=== PATIENT | female | born 1980 | race Caucasian/White ===

== ENCOUNTER 2025-05-16 12:45 | Outpatient (REF) | payer OTHER, SELFPAY ==
--- NOTE | ~2025-05-16 | XR_ITS ---
EXAMINATION: XR CHEST CLINICAL INFORMATION: R06.09 - Other forms of dyspnea COMPARISON: None available. TECHNIQUE: 2 views of the chest were obtained. FINDINGS: No focal lung consolidation or evidence of pulmonary edema. No pneumothorax or pleural effusion. Cardiomediastinal silhouette is within normal limits. No acute bony abnormality. XR/XR chest 2V IMPRESSION: No acute cardiopulmonary process. Electronically signed by: Magno Layton MD 05/16/2025 02:23 PM [facility]
== END 2025-05-16 12:46 | disposition home or self-care (01) ==
LOC: HO.XRAY 12:45
PROVIDERS: PCP Internal Medicine; Visit Provider Internal Medicine
DX: R06.09 Other forms of dyspnea (principal); Z13.31 Encounter for screening for depression; Z13.39 Encounter for screening examination for other mental health and behavioral disorders
CPT/HCPCS: 71046; 96127

== ENCOUNTER 2025-05-16 12:45 | Outpatient (AMB) | payer OTHER, SELFPAY ==
--- NOTE | 2025-05-16 13:00 | A.OFFPC_ITS ---
Vital Signs 05/16/25 13:01 Height 5 ft 7.5 in Weight 258 lb 8 oz BMI 39.9 BP 120/76 Blood Pressure Location Lt brachial Position Sitting Respiration 16 Pulse 86 Pulse Source Pulse Oximeter Temp 97.1 F Temp Source Temporal Artery Scan Pulse Oximetry (%) 97 Oxygen Delivery Method Room Air Intake Visit Reasons: LIZA/ resched. - see comments, reestablish care Swift Tender Required: No Accompanied by: Self / Same As Patient Allergies No Known Allergies Allergy (Verified 05/16/25 13:02) Medication List - Last Reconciled 05/16/25 by Lynn Barr MD amlodipine 5 mg PO DAILY calcium carbonate 600 mg PO DAILY cholecalciferol (vitamin D3) 50 mcg PO DAILY folic acid 1 mg PO QAM hydroxychloroquine 200 mg PO BID lisinopril 10 mg PO DAILY magnesium oxide 150 mg PO .QHS methotrexate sodium 15 mg PO QWEEK omega-3 fatty acids 500 mg PO DAILY Tobacco use date assessed: 05/16/25 Dental Screening Dental Screen Date: 05/16/25 Did you have a dental visit in the last 12 months?: Yes Did you have a dental problem in the last 6 months where you did not have access to dental care?: No Was dental information given to patient?: Patient has dentist HPI HPI Comments History of Present Illness Details The patient is a 45 year old female [facility] for management of mixed connective tissue disease. Mixed Connective Tissue Disease: The patient was diagnosed with mixed connective tissue disease by a greens laborer and has seen the specialist twice. Treatment history includes a course of prednisone, which has been tapered off, and a prior trial of high-dose prednisone that caused adverse psychiatric effects. The patient is currently on hydroxychloroquine (Plaquenil) and was recently started on methotrexate 15 mg (6 tabs) weekly with folic acid, as the hydroxychloroquine alone did not improve symptoms. Despite treatment, the patient reports persistent pain, rated 5 to 7 out of 10, affecting various joints. Swelling has improved, but muscle fatigue and dyspnea on exertion, particularly when climbing stairs, persist and began around the onset of the pain. Hypertension: The greens laborer recently started the patient on lisinopril and amlodipine after a spiked blood pressure reading at the last visit, which the patient attributes to anxiety about the appointment. Obesity: The patient expresses a desire to lose weight and notes weight gain occurred after starting prednisone treatment, after having previously lost 20 pounds. Subclinical hypothyroidism-due for repeat thyroid panel Health Maintenance: The patient is due for an annual mammogram in July 2025. A recall mammogram in August was followed by a 6-month recheck in February, which showed a finding that was too small to biopsy, with a recommendation for another 6-month follow- up. Patient is due for gynecology follow up. Diagnostic Results: - Mammogram (February): Following a rec all, a finding was noted that was too small to biopsy, with a 6-month follow-up recommended. [facility] Medical History (Updated 05/16/25 @ 18:11 by Lynn Barr MD) Obesity (BMI 35.0-39.9 without comorbidity) Murmur Dyspnea on exertion Mixed connective tissue disease Hot flashes IBS (irritable bowel syndrome) Subclinical hypothyroidism Endometriosis Depression with anxiety Muscle ache Primary hypertension Surgical History (Updated 05/15/25 @ 23:23 by Lynn Barr MD) History of tonsillectomy Family History (Updated 05/15/25 @ 23:26 by Lynn Barr MD) Mother Cerebral aneurysm Other Diabetes mellitus Family history of thyroid problem Primary hypertension Social History Housing: House Patient Tobacco Use Status: Never used Tobacco e-Cigarette/Vaping Use: Never Used service: No Current occupational status: employed Current occupation: Teacher Questionnaire PHQ-9 Over the last 2 weeks, how often have you been bothered by any of the following problems? 1. Little interest or pleasure in doing things: several days 2. Feeling down, depressed, or hopeless: several days 3. Trouble falling or staying asleep, or sleeping too much: nearly every day 4. Feeling tired or having little energy: nearly every day 5. Poor appetite or overeating: several days 6. Feeling bad about yourself - or that you are a failure or have let yourself or your family down: several days 7. Trouble concentrating on things, such as reading the newspaper or watching television: several days 8. Moving or speaking so slowly that other people could have noticed. Or the opposite - being so fidgety or restless that you have been moving around a lot more than usual: not at all 9. Thoughts that you would be better off or of hurting yourself in some way: not at all Total score: 11 Depression Screening Interpretation: Positive Depression Screening Done: Yes 61531 - PHQ-9 Billing: Yes Source: Developed by Drs. Cruz Stone, Kati Bosch, Umang Mcdonnell and colleagues, with an educational rhiannon from [email or web address]. Thrive Questionnaire Date Thrive assessed: 05/16/25 I am a: Patient What is your living situation today?: I have a steady place to live Within the past 12 months, did the food you bought not last and you didn't have the money to get more?: Never true Within the past 12 months, did you worry whether your food would run out before you got money to buy more?: Never true Do you have trouble paying for medicines?: No Do you have trouble getting transportation to medical appointments?: No Do you have trouble paying your heating and electricity bill?: No Do you have trouble taking care of your child, family member or friend?: No Do you have trouble with day-to-day activities such as bathing, preparing meals, shopping, managing finances, etc.?: No Are you currently unemployed and looking for a job?: No Are you interested in more education?: No Please select the resources that you would like help with: None Currently or been in a relationship where the following occur: No concerns reported THRIVE Score: 0 AUDIT C Alcohol Use Questionnaire (AUDIT-C) 1. How often do you have a drink containing alcohol?: Never 3. How often do you have six or more drinks on one occasion?: Never Total Score: 0 GARY-7 AMB Questionnaire GARY-7 Date GARY - 7 assessed: 05/16/25 Feeling nervous, anxious, or on edge: 2 = More than half the days Not being able to stop or control worryin = More than half the days Worrying too much about different things: 2 = More than half the days Trouble relaxin = Nearly every day Being so restless that it is hard to sit still: 3 = Nearly every day Becoming easily annoyed or irritable: 1 = Several days Feeling afraid as if something awful might happen: 1 = Several days Total GARY-7 score (0-4 normal; 5-9 mild; 10-14 moderate; 15-21 severe): 14 Source: Developed by Drs. Cruz Stone, Kati Bosch, Umang Mcdonnell and colleagues, with an educational rhiannon from [email or web address]. Review of Systems Narrative Review of Systems - Constitutional: Reports muscle fatigue and feeling off . - Eyes: Denies blurriness. - Respiratory: Reports dyspnea on exertion, especially when climbing stairs. - Cardiovascular: Denies chest pain or pressure with exertion. - Gastrointestinal: Reports occasional nausea, which the patient associates with menses. Denies it being a daily issue. - Musculoskeletal: Reports joint pain with a severity of 5-7/10. Swelling has improved, but reports muscle fatigue and a feeling of heaviness. Physical exam (Primary Care) Vital Signs: Last Vital Signs Temp 97.1 F 05/16/25 13:01 Pulse 86 05/16/25 13:01 Resp 16 05/16/25 13:01 BP 120/76 05/16/25 13:01 Pulse Ox 97 05/16/25 13:01 Oxygen Delivery Method Room Air 05/16/25 13:01 BMI result Body Mass Index 39.9 Tobacco/Smoking Status: Tobacco use Status Tobacco use date assessed 05/16/25 05/16/25 13:09 Patient Tobacco Use Status Never used Tobacco 05/16/25 13:09 e-Cigarette/Vaping Use Never Used 05/16/25 13:09 PHQ-9: PHQ-9 Score PHQ-9: Total score 11 05/16/25 13:09 Depression Screening Interpretation: Positive Thrive Assessment: Date of Thrive Assessment Date Thrive assessed 05/16/25 05/16/25 13:09 Currently or been in a relationship where the following occur: No concerns reported Narrative Physical Exam - HEENT: Vision grossly intact, patient denies blurriness. - Lungs: Clear to auscultation bilaterally. - Cardiovascular: Regular rate and rhythm. A soft murmur is noted on auscultation. - Abdomen: Soft, non-tender, and non-distended. - Extremities; no edema bilaterally Coding Level of Care Code Est Pt Level 4 (94451) Complex visit Add On G2211 Diagnoses Primary hypertension I10 Mixed connective tissue disease M35.1 Obesity (BMI 35.0-39.9 without comorbidity) E66.9 Additional Codes PHQ-9 - 32481 - PHQ-9 Billing: Yes ([id number]) Assessment & Plan Assessment & Plan (1) Primary hypertension: Code(s): I10 - Essential (primary) hypertension Category: Medical (2) Mixed connective tissue disease: Code(s): M35.1 - Other overlap syndromes Category: Medical (3) Obesity (BMI 35.0-39.9 without comorbidity): Code(s): E66.9 - Obesity, unspecified Category: Medical Plan Assessment and Plan 1. Mixed Connective Tissue Disease - Status is suboptimally controlled with persistent pain and fatigue despite treatment with hydroxychloroquine and methotrexate. - Plan includes a referral to a new greens laborer for a second opinion and to establish care. The patient will continue the current medication regimen in the interim. 2. Dyspnea on Exertion and Heart Murmur - The patient reports shortness of breath when climbing stairs. - The plan is to obtain a baseline chest X-ray today and an echocardiogram to evaluate for underlying cardiopulmonary pathology. 3. Hypertension - The patient was recently started on lisinopril and amlodipine by a greens laborer for an elevated reading, which may have been situational. Current blood pressure is well-controlled. 4. Obesity - The patient is motivated to lose weight and inquired about GLP-1 agonists but faces insurance barriers. - The plan involves providing the patient with several avenues to explore for obtaining these medications, including a referral to an obesity medicine specialist, [place] programs, and other commercial programs due to patient's insurance guidelines. Further recommendations include low-impact exercise such as water aerobics. 5. Health Maintenance - The plan includes ordering fasting labs (A1C, lipid panel, CMP, TSH, folate, vitamin D) and a urinalysis. The patient was advised to get an annual eye exam due to hydroxychloroquine use. The patient will continue with the scheduled annual mammogram. 6. Follow-up - Follow up in August for physical Plan - A referral will be placed to [facility] for consultation and ongoing management. - An order for a baseline chest X-ray will be placed for the patient to complete today. - An order for a baseline echocardiogram will be placed to evaluate dyspnea and murmur. - Fasting labs will be ordered, including an A1c, lipid panel, CMP, TSH, vitamin D, folic acid, and a urinalysis. - Advised the patient to schedule an annual eye exam for retinal screening due to hydroxychloroquine use. - Patient counseled on low-impact exercise options, such as water aerobics. Discussion Notes I explained the rationale for ordering a baseline chest X-ray and an echocardiogram to evaluate these findings, which is also important as a baseline before considering further systemic therapies for the autoimmune condition. Patient Instructions - A referral has been sent to a new greens laborer - Please go to the [facility] building today to have a chest X-ray. - You will receive a call from the scheduling team to set up an echocardiogram, which is an ultrasound of your heart. - Please get your blood work done at the lab at [address] [facility]. You will need to be fasting, meaning nothing to eat or drink except for water for 8-12 hours before the test. - Please schedule an eye exam with an eye doctor every year, - Consider low-impact exercise like water aerobics Orders: Orders Complete Blood Count Auto Diff Today E03.8 - Other specified hypothyroidism, I10 - Essential (primary) hypertension, M35.1 - Other overlap syndromes Lipid Panel Today E03.8 - Other specified hypothyroidism, I10 - Essential (primary) hypertension, M35.1 - Other overlap syndromes Hemoglobin A1c Today E03.8 - Other specified hypothyroidism, I10 - Essential (primary) hypertension, M35.1 - Other overlap syndromes Vitamin D 25-OH Total Today E03.8 - Other specified hypothyroidism, I10 - Essential (primary) hypertension, M35.1 - Other overlap syndromes CA echo transthoracic complete Today R01.1 - Cardiac murmur, unspecified, R06.09 - Other forms of dyspnea Comprehensive Met. Panel Today E03.8 - Other specified hypothyroidism, I10 - Essential (primary) hypertension, M35.1 - Other overlap syndromes TSH reflex Free T4 Today E03.8 - Other specified hypothyroidism, I10 - Essential (primary) hypertension, M35.1 - Other overlap syndromes Vitamin B12 Today E03.8 - Other specified hypothyroidism, I10 - Essential ([place]) hypertension, M35.1 - Other overlap syndromes Microalbumin, Random (w Creat) Today I10 - Essential (primary) hypertension XR chest 2V Today R06.09 - Other forms of dyspnea Referrals Rheumatology Referral M35.1 - Other overlap syndromes Medications: New amlodipine 5 mg PO DAILY 90 tabs 3RF
[2025-05-16 13:01] VITALS: BP 120/76; PULSE 86; RESP 16; TEMP 36.2; O2SAT 97; BMI 39.9
--- OUTSIDE RECORDS SUMMARY | 2025-05-16 15:00 | XMS_ITS | Clinical Summary ---
Author Organization [facility] Address [address] [place] [id number] Phone Care Team Providers Care Sterile Supervisor Name Role Phone Lynn Barr MD Primary Care Provider + Social History Tobacco Use Types Packs/Day Years Used Date Smoking Tobacco: Never Assessed Comments Unknown Sex and Gender Information Value Date Recorded Sex Assigned at Not on file Legal Sex Female 2:25 PM EDT Gender Identity Not on file Sexual Orientation Not on file Plan of Treatment Not on file Medical Devices Not on file Insurance [facility] HMO Care Teams Sterile Supervisor Relationship Specialty Start Date End Date Lynn Barr MD PCP - General Internal Medicine 09/19/24 Additional Source Comments The information contained in this document represents components of the legal health record. It is not the complete legal health record.[facility]
--- OUTSIDE RECORDS SUMMARY | 2025-05-16 15:00 | XMS_ITS | Encounter Summary ---
Author Organization [facility] Address [address] [place] [address] Phone Care Team Providers Care Air Traffic Coordinator Name Role Phone Lynn Barr MD Primary Care Provider + Encounter Details Date Type Department Care Team (Late st Contact Info) Description 09/22/2024 Transcribe Orders [facility] [address] [place] [address] Lynn Barr MD [address] [place] [id number] Social History Tobacco Use Types Packs/Day Years Used Date Smoking Tobacco: Never Assessed Comments Unknown Sex and Gender Information Value Date Recorded Sex Assigned at Not on file Legal Sex Female 2:25 PM EDT Gender Identity Not on file Sexual Orientation Not on file documented as of this encounter Plan of Treatment Not on file documented as of this encounter Visit Diagnoses Not on filedocumented in this encounter Care Teams Air Traffic Coordinator Relationship Specialty Start Date End Date Lynn Barr MD PCP - General Internal Medicine 09/19/24 documented as of this encounter Additional Source Comments The information contained in this document represents components of the legal health record. It is not the complete legal health record.[facility]
--- OUTSIDE RECORDS SUMMARY | 2025-05-16 15:00 | XMS_ITS | Clinical Summary ---
Author Organization [facility] [address] [facility] Address [address] [place] [address] Phone Care Team Providers Care River Guide Name Role Phone Lynn Barr MD Primary Care Provider [phone] Allergies Active Allergy Reactions Criticality Noted Date Comments Amlodipine 08/18/2024 Medications loratadine (CLARITIN REDITABS) 10 mg dispersible tablet Dissolve 1 tablet (10 mg total) on top of the tongue 1 (one) time each day. Active fluticasone propionate (FLONASE) 50 mcg/actuation nasal spray Administer 1 spray into each nostril 1 (one) time each day. Shake gently. Before first use, prime pump. After use, clean tip and replace cap. Active gabapentin (NEURONTIN) 100 mg capsule Take 1 capsule (100 mg total) by mouth 3 (three) times a day. Active hydrOXYzine (ATARAX) 10 mg/5 mL syrup Take 5 mL (10 mg total) by mouth 3 (three) times a day. Active lisinopriL (PRINIVIL,ZESTR IL) 10 mg tablet Take 1 tablet (10 mg total) by mouth 1 (one) time each day. Active MAGNESIUM GLYCINATE, BULK, MISC Active Bacillus coagulans/inuli n (PROBIOTIC FORMULA, INULIN, ORAL) Take by mouth. A ctive predniSONE (DELTASONE) 5 mg tablet Take 3 tablets (15 mg total) by mouth 1 (one) time each day. 5 Active predniSONE (DELTASONE) 10 mg tablet TAKE 2 TABLETS BY MOUTH DAILY FOR 5 DAYS THEN 1 TAB DAILY THEN 1/2 TAB DAILY 5 Active zinc acetate/sweetle af (ZINC, ACETATE, LOZENGES ORAL) 0 Refills, Maintenance, 08/11/24 2:52:00 PM EST, Partial fill upon patient request if the prescription is for a schedule II opioid drug. 5 Active Bacillus coagulans-inuli n (Probiotic Formula, inulin,) 1 billion-250 cell-mg capsule Take by mouth. 2 Active sodium,potassiu m,mag sulfates (Suprep Bowel Prep Kit) 17.5-3.13-1.6 gram recon soln bowel prep kit oral solution Take 177ML by mouth for 2 doses. SEE INSTRUCTIONS PROVIDED BY OFFICE. 1 kit Active Additional Information Patient not taking.Reported on 10/10/2024 dicyclomine (BENTYL) 10 mg capsuleIndicati ons:Diarrhea, unspecified type TAKE 1 CAPSULE BY MOUTH 3 (THREE) TIMES A DAY IF NEEDED (ABDOMINAL DISCOMFORT, LOOSE STOOLS). 90 capsule 11 5 Active bisacodyL (DULCOLAX) 5 mg EC tablet Take 2 tablets by mouth right before beginning bowel prep. See instructions provided by the office 2 tablet 5 Active Additional Information Patient not taking.Reported on 10/10/2024 polyethylene glycol (Golytely) 236-22.74-6.74 -5.86 gram solution Take 4L by mouth once for one dose. May substitue any PEG. Starting at 6PM the night before your procedure drink 1 8oz glasses at your own pace until you complete half of the gallon. Finish 2nd half of the gallon 5 hours before your procedure. 4000 mL 5 Active Additional Information Patient not taking.Reported on 10/10/2024 predniSONE (DELTASONE) 10 mg tablet Take 1.5 tablets (15 mg total) by mouth 1 (one) time each day. Active Active Problems Problem Noted Date Diagnosed Date Hot flashes 10/03/2024 Bilateral hand pain 10/03/2024 Allergic rhinitis 10/03/2024 Severe obesity (BMI 35.0-39. 9) with comorbidity (CMS/HCC V24, CMS/HCC V28) 10/03/2024 Depression with anxiety 09/13/2024 Endometriosis 09/13/2024 Hypertension 09/13/2024 Irritable bowel syndrome 09/13/2024 Assessment & Plan (10/10/2024 4:29 PM EDT): Suspect functional given negative colonoscopy. Start dicyclomine 10mg TID diarrhea Gave handout on the FODMAP diet. Recommend adherence x 2-4 weeks to see if diarrhea responsive to dietary changes. Subclinical hypothyroidism 09/13/2024 Muscle ache 08/11/2024 Surgical History Surgery Date Site/Laterality Comments TONSILLECTOMY SECTION COLONOSCOPY 10/04/2024 negative random colonic biopsy Medical History Medical History Date Comments Preeclampsia Family History Medical History Relation Name Comments Hypertension Father Cerebral aneurysm Mother Hypertension Mother Thyroid disease Mother diabetes mellitus Mother Allergy (severe) Sister Asthma Sister Colon cancer Neg Hx Inflammatory bowel disease Neg Hx Relation Name Status Comments Father Mother Sister Social History Tobacco Use Types Packs/Day Years Used Date Smoking Tobacco: Never Smokeless Tobacco: Never Tobacco Cessation:Counseling Given: Not Answered Alcohol Use Standard Drinks/Week Comments Not Currently 0 (1 standard drink = 0.6 oz pur e alcohol) Interpersonal Safety Answer Date Record ed Physical Abuse Unrecognized value 10/04/2024 Verbal Abuse Unrecognized value 10/04/2024 Comments No Sex and Gender Information Value Date Recorded Sex Assigned at Female 10/03/2024 1:53 PM EDT Legal Sex Female 4:10 PM EST Gender Identity Female 10/03/2024 1:53 PM EDT Sexual Orientation Not on file Obstetrics History Last Filed Vital Signs Vital Sign Reading Time Taken Comments Blood Pressure 121/65 10/04/2024 11:25 AM EDT Pulse 78 10/04/2024 11:25 AM EDT Temperature 36.1 C (97 F) 10/04/2024 11:09 AM EDT Respiratory Rate 18 10/04/2024 11:25 AM EDT Oxygen Saturation 98% 10/04/2024 11:25 AM EDT Inhaled Oxygen Concentration - - Weight 112 kg (246 lb) 10/10/2024 3:19 PM EDT Height 170.2 cm (5' 7 ) 10/10/2024 3:19 PM EDT Body Mass Index 38.53 10/10/2024 3:19 PM EDT Plan of Treatment Health Maintenance Due Date Last Done Comments Breast Cancer Screening 1982 Hepatitis B Vaccines (1 of 3 - 19+ 3-dose series) 2001 Cervical Cancer Screening: P ap Smear 2003 HPV Vaccines (1 - 3-dose SCD M series) 2009 Depression Screening 06/14/2024 Cholesterol Screening (Lipid Panel) 08/18/2024 HIV Screening 08/18/2024 Hepatitis C Screening 08/18/2024 Social Influencers of Health Screening 08/18/2024 Hypertension/CHF/CAD Annual BMP Blood Test 09/13/2024 COVID-19 Vaccine (3 - 2024-2 6 season) 2025 10/05/2020, 09/07/2020 Influenza Vaccine (#1) 2025 DTaP,Tdap,and Td Vaccines (3 - Td or Tdap) 12/11/2026 12/11/2016, 06/01/2005 RSV Immunization Adult Patients (1 - 1-dose 75+ series) 2057 HIB Vaccines Aged Out No longer eligi ble based on patient's age to complete this topic Hepatitis A Vaccines Aged Out No long er eligible based on patient's age to complete this topic IPV Vaccines Aged Out No longer eligi ble based on patient's age to complete this topic MMR Vaccines Aged Out No longer eligi ble based on patient's age to complete this topic Meningococcal ACWY Vaccine Aged Out N o longer eligible based on patient's age to complete this topic Meningococcal B Vaccine Aged Out No l onger eligible based on patient's age to complete this topic Pneumococcal Vaccine: Pediatrics (0 to 5 Years) and At-Risk Patients (6 to 49 Years) Aged Out No longer eligible b ased on patient's age to complete this topic RSV Immunization Patients Under 20 months Aged Out No longer eligible b ased on patient's age to complete this topic Varicella Vaccines Aged Out No longer eligible based on patient's age to complete this topic Insurance [facility] Care Teams River Guide Relationship Specialty Start Date End Date Lynn Barr MD [address] [place] [address] PCP - General Internal Medicine 08/17/24
== END 2025-05-16 13:54 | disposition home or self-care (01) ==
LOC: HO.HMCHD 12:47
PROVIDERS: PCP Internal Medicine; Visit Provider Internal Medicine
DX: I10 Essential (primary) hypertension (principal); M35.1 Other overlap syndromes; E66.9 Obesity, unspecified

== ENCOUNTER → 2025-05-16 14:10 | Outpatient (BNV) | payer OTHER, SELFPAY | PROVIDERS: PCP Internal Medicine; Visit Provider Radiology Body Imaging | DX: R06.09 Other forms of dyspnea (principal) | CPT/HCPCS: 71046 ==